=== PATIENT | male | born 1985 | race Caucasian/White ===

== ENCOUNTER 2021-03-08 11:32 | Emergency (ER) | payer OTHER, SELFPAY ==
[2021-03-08 11:52] VITALS: BP 141/74; PULSE 79; RESP 18; TEMP 36.4; O2SAT 100
--- NOTE | 2021-03-08 13:23 | PC.NURSE ---
Pt ambulatory to the desk, states you guys are busy, I have to get this fixed so that I can go back to work. I'm gonna go to another hospital. Do you have papers I can sign? . Pt informed that there are no papers to sign as has not seen a provider. Amb to exit.
== END 2021-03-08 13:25 | disposition left against medical advice (07) ==
PROVIDERS: Emergency Provider Emergency Medicine
DX: S61.211A Laceration without foreign body of left index finger without damage to nail, initial encounter (principal)
CPT/HCPCS: 99199